=== PATIENT | female | born 1965 | race Caucasian/White ===

== ENCOUNTER 2018-04-13 08:38 | Emergency (ER) | payer OTHER ==
[2018-04-13 08:47] VITALS: O2SAT 96
[2018-04-13] MEDS ORDERED: TORAdol 30 mg Injection IM ONE (08:55)
[2018-04-13] MEDS ORDERED: TORAdol 30 mg Injection ONE (08:56)
--- NOTE | 2018-04-13 09:02 | ERPHSYRPT ---
- History of Present Illness Time Seen by Provider: 04/13/18 08:50 Source: patient Exam Limitations: no limitations Patient Subjective Stated Complaint: pt reports she slipped on wet floor yesterday and fell onto left shoulder-reports pain to left shoulder Triage Nursing Assessment: pt pale warm and [id number] obvious deformity noted -radial pulse regular and strong Physician History: This is a 52-year-old white female with history of COPD, arthritis, osteoporosis , who sees physical therapy secondary to chronic left wrist pain. She arrives with complaint of pain in her left arm left shoulder symptoms since yesterday after falling and slipping on a wet floor at home. Patient complains of pain in her left shoulder left arm worse with any movement. denies other complaints. Past medical history includes COPD, arthritis, osteoporosis Past surgical history includes appendectomy tubal ligation (patient states she is" fixed") Occurred: yesterday (last evening) Method of Injury: other (slipped on a wet floor), fell Quality: constant, aching Severity of Pain-Max: moderate Severity of Pain-Current: moderate Extremities Pain Location: shoulder: left, arm: left Modifying Factors: Improves With: movement, other (palpation) Allergies/Adverse Reactions: No Known Drug Allergies Allergy (Unverified 04/13/18 08:47) Home Medications: Albuterol Common Canister [Proventil Common Canister] 1 puff IN UD [History] Hx Tetanus, Diphtheria Vaccination/Date Given: No Hx Influenza Vaccination/Date Given: No Hx Pneumococcal Vaccination/Date Given: No Immunizations Up to Date: Yes - Review of Systems Constitutional: No Fever, No Chills Eyes: No Symptoms Ears, Nose, & Throat: No Symptoms Respiratory: No Cough, No Dyspnea Cardiac: No Chest Pain, No Edema, No Syncope Abdominal/Gastrointestinal: No Abdominal Pain, No Nausea, No Vomiting, No Diarrhea Genitourinary Symptoms: No Dysuria Musculoskeletal: Fall, Injury, Other (left arm and shoulder pain) Skin: No Rash Neurological: No Dizziness, No Focal Weakness, No Sensory Changes Psychological: No Symptoms Endocrine: No Symptoms All Other Systems: Reviewed and Negative - Past Medical History Pertinent Past Medical History: Yes Neurological History: No Pertinent History Cardiac History: No Pertinent History Respiratory History: COPD Endocrine Medical History: No Pertinent History Musculoskeletal History: Arthritis, Osteoporosis - Past Surgical History Past Surgical History: Yes Gastrointestinal: Appendectomy Female Surgical History: Tubal Ligation - Social History Smoking Status: Current every day smoker How long have you smoked: yrs Exposure to second hand smoke: Yes Drug Use: none Patient Lives Alone: No - Female History Hx Now: No - Nursing Vital Signs Nursing Vital Signs: Initial Vital Signs Temperature 98.3 F 04/13/18 08:43 Pulse Rate 89 04/13/18 08:43 Respiratory Rate 18 04/13/18 08:43 Blood Pressure 129/91 04/13/18 08:43 O2 Sat by Pulse Oximetry 96 04/13/18 08:43 Pain Scale Pain Intensity 6 - Physical Exam General Appearance: mild distress, other (well-developed well-nourished white female she is alert and oriented x 3, she has Barry wrap wrapped left arm flexed across her anterior lower chest) Eyes, Ears, Nose, Throat Exam: moist mucous membranes Neck Exam: non-tender, supple Cardiovascular/Respiratory Exam: chest non-tender, normal breath sounds, regular rate/rhythm, no respiratory distress Abdominal Exam: non-tender, No guarding Back Exam: normal inspection, No vertebral tenderness Shoulder Exam: No normal inspection (patient complains of pain with any movement of her left shoulder. Left lateral humerus tender with palpation midhumerus, decreased range of motion left shoulder, left elbow secondary to pain) Elbow/Forearm Exam: no evidence of injury Wrist Exam: normal inspection (patient with decreased rom left wrist( chronic) ) , non-tender, no evidence of injury Hand Exam: normal inspection, non-tender, no evidence of injury, normal ROM Neuro/Tendon Exam: normal sensation, normal motor functions Mental Status Exam: alert, oriented x 3, cooperative Skin Exam: normal color, warm, dry SpO2 Interpretation: normal (96%) SpO2: 96 Oxygen Delivery: Room Air - Course Nursing assessment & vital signs reviewed: Yes - Radiology Exams Left Shoulder X-ray Interpretation: Discussed w/ radiologist (minimally angulated impacted humeral neck fracture) Left Humerus X-ray Interpretation: Discussed w/ radiologist (minimally angulated, impacted humeral neck acute fracture. interval worsening left mid to lower lung pleural thickening compared to cxr may 2010) Ordered Tests: Active Orders 24 hr Category Date Time Status Sling Application STAT Care 04/13/18 09:29 Active HUMERUS Stat Exams 07/25/18 08:56 Completed SHOULDER Stat Exams 04/13/18 08:56 Completed Medication Summary Discontinued Medications Generic Name Dose Route Start Last Admin Trade Name Freq PRN Reason Stop Dose Admin Ketorolac Tromethamine 60 mg 04/13/18 08:55 04/13/18 08:59 Toradol 30 Mg Injection IM 04/13/18 08:56 60 mg STAT ONE Administration Ketorolac Tromethamine Confirm 04/13/18 08:56 Toradol 30 Mg Injection Administered 04/13/18 08:57 Dose 60 mg .ROUTE .STK-MED ONE - Progress Progress: improved Progress Note: 04/13/18 10:00 52-year-old white female with history of chronic wrist pain arrives with complaint of pain in her left shoulder after falling last night. X-ray of the left humerus and shoulder show a minimally angulated impacted humeral neck acute fracture. Sling is in place contacted [facility] orthopedic clinic. We have contacted [facility] fracture clinic expect patient to follow-up tomorrow morning at 8 AM. (Patient states she only goes a [facility]) - Departure Time of Disposition: 10:51 Departure Disposition: Home Clinical Impression: Accidental fall Qualifiers: Encounter type: initial encounter Qualified Code(s): W19.XXXA - Unspecified fall, initial encounter Fx humeral neck Qualifiers: Encounter type: initial encounter Fracture type: closed Laterality: left Qualified Code(s): S42.212A - Unspecified displaced fracture of surgical neck of left humerus, initial encounter for closed fracture Condition: Fair Critical Care Time: No Referrals: BARRY FISH [Primary Care Provider] - Additional Instructions: Return home. Ice to left shoulder 24-48 hours. [place] 5/325 #12 one orally every 4-6 hours as needed for pain. Follow-up with your [facility] fracture clinic tomorrow morning 8 AM. . Return for acute distress or for severe symptoms. take x ray disc to [facility] fracture clinic Prescriptions: Hydrocodone/Acetaminophen [[place] 5-325 Tablet] 1 tab PO Q4-6HPRN PRN #12 tablet MDD 6 tablets PRN Reason: Pain
--- NOTE | 2018-04-13 09:48 | XRAY ---
Indication: Pain following fall. Comparison: None 2 views of the left humerus demonstrates minimally angulated impacted humeral neck acute fracture. Interval worsening left mid to lower lung pleural thickening with respect to chest radiograph June 07, 2010.
--- NOTE | 2018-04-13 09:51 | XRAY ---
Indication: Pain following fall. Comparison: None 3 views of the left shoulder demonstrates minimally angulated impacted humeral neck fracture. No other bony, articular, or soft tissue abnormalities.
[2018-04-13 10:51] VITALS: BP 130/87
[2018-04-13 10:52] VITALS: PULSE 76
== END 2018-04-13 11:00 | disposition home or self-care (01) ==
LOC: ED 08:38
DX: S42.292A Other displaced fracture of upper end of left humerus, initial encounter for closed fracture (principal); W01.0XXA Fall on same level from slipping, tripping and stumbling without subsequent striking against object, initial encounter
CPT/HCPCS: 73030; 73060; 96372; 99284; J1885